=== PATIENT | female | born 1965 | race Caucasian/White ===

== ENCOUNTER 2022-05-01 17:22 | Emergency (ER) | payer OTHER ==
[~2022-05-01] VITALS: Ht 165.1 cm; Wt 99.8 kg
[2022-05-01 17:43] VITALS: BP_SYST 146
--- NOTE | 2022-05-01 18:05 | NUR ---
Pt brought by self, A&Ox4, pt presents to ER with R upper abdominal pain x 2 days, skin pink and warm, cap refill <3, VSS.
[2022-05-01 20:23] LABS: BASOPHILS # (AUTO) 0.1 K/uL (0.0-0.2); EOSINOPHILS # (AUTO) 0.2 K/uL (0.0-0.4); EOSINOPHILS % (AUTO) 3.1 % (0.0-4.0); HEMATOCRIT 37.4 % (36-48); LYMPHOCYTES # (AUTO) 2.1 K/uL (1.0-5.5); LYMPHOCYTES % (AUTO) 37.9 % (20.5-51.5); MEAN CORPUSCULAR VOLUME 87 fL (79.0-98.0); MONOCYTES # (AUTO) 0.5 K/uL (0.0-1.0); MONOCYTES % (AUTO) 8.4 % (1.7-9.3); NEUTROPHILS # (AUTO) 2.8 K/uL (1.8-7.7); NEUTROPHILS % (AUTO) 49.6 % (40.0-70.0); PLATELET COUNT (AUTO) 130 K/uL (130-430); RED BLOOD CELL COUNT(AUTO) 4.28 MIL/uL (4.2-6.2); RED CELL DISTRIBUTION WIDTH 14.1 % (9.0-15.0); WHITE BLOOD COUNT (AUTO) 5.6 K/uL (4.8-10.8)
--- NOTE | 2022-05-01 20:55 | NUR ---
Patient to ER bed to gown for evaluation. Side rails up. Report given to Alix VENTURA .
[2022-05-01 20:59] LABS: BILIRUBIN,URINE NEGATIVE (NEGATIVE); BLOOD, URINE NEGATIVE (NEGATIVE); CLARITY/URINE CLEAR (CLEAR); COLOR,URINE YELLOW (YELLOW); GLUCOSE,URINE TRACE (NEGATIVE); KETONES,URINE NEGATIVE (NEGATIVE); LEUKOCYTE ESTERASE ,URINE NEGATIVE (NEGATIVE); NITRITE, URINE NEGATIVE (NEGATIVE); PROTEIN URINE NEGATIVE (NEGATIVE)
--- NOTE | 2022-05-01 21:03 | NUR ---
WIL Friend at bedside.
--- NOTE | 2022-05-01 21:05 | NUR ---
Patient presents to ED with c/o back pain. Patient reports 7/10 pain in lower back. Patient A/Ox4, VSS, resp even and unlabored. Patient connected to monitor and lying in bed with side rails raised. Nad noted at this time.
[2022-05-01] MEDS ORDERED: KETOROLAC TROMETHAMINE 30 MG VIAL IM ONE (21:15)
[2022-05-01] MEDS ORDERED: MORPHINE 4 MG INJ. 4 MG/ML VIAL IM ONE (21:15)
[2022-05-01 21:34] LABS: ANION GAP 12 (5-15); CHLORIDE 101 mmol/L (98-107); CREATININE 0.79 mg/dL (0.55-1.30); GLUCOSE 218 mg/dL (70-99); POTASSIUM 3.7 mmol/L (3.5-5.1); UREA NITROGEN, BLOOD 13 mg/dL (8-21)
[2022-05-01 21:39] LABS: GFR AFRICAN AMERICAN 97 mL/min (>90)
[2022-05-01 21:43] LABS: ALANINE AMINOTRANSFERASE 28 U/L (12-78); ALBUMIN 2.9 g/dL (3.4-4.8); ASPARTATE AMINOTRANSFERASE 46 U/L (10-37); TOTAL BILIRUBIN 1.2 mg/dL (0.0-1.0)
--- NOTE | 2022-05-01 22:00 | NUR ---
Patient resting comfortably in bed with side rails raised. Nad noted at this time.
[2022-05-01] MEDS ORDERED: NAPR-1172 PO (22:56)
[2022-05-01 23:18] VITALS: BP_SYST 118
--- NOTE | 2022-05-01 23:18 | NUR ---
Patient given written and verbal discharge instructions and verbalizes understanding. ER MD discussed with patient the results and treatment provided. Patient in stable condition. ID arm band removed. Rx of Naproxen given. Patient educated on pain management and to follow up with PMD. Pain Scale 3/10. Opportunity for questions provided and answered. Medication side effect fact sheet provided. Patient A/Ox4, VSS, resp even and unlabored. Nad noted at this time. Patient in stable condition upon discharge.
== END 2022-05-01 23:18 | disposition home or self-care (01) ==
LOC: SED 17:22
DX: R10.11 Right upper quadrant pain (principal); J45.909 Unspecified asthma, uncomplicated; E11.9 Type 2 diabetes mellitus without complications; I10 Essential (primary) hypertension; Z79.899 Other long term (current) drug therapy
CPT/HCPCS: 99285; 74176; 71045; 80053; 85025; 84484; 36415; 93005; 76376; 96372; 81003; J1885; J2270

== ENCOUNTER 2023-01-28 21:27 | Emergency (ER) | payer OTHER ==
[~2023-01-28] VITALS: Ht 165.1 cm; Wt 113.4 kg
[~2023-01-28 21:27] MED LIST: NAPR-1172 PO
[2023-01-28 21:38] VITALS: BP_SYST 143
--- NOTE | 2023-01-28 21:38 | NUR ---
Pt with BS of 39. Pt ambulatory and A&O X4. Pt given 4 oz of juice PO. MD AND PRIMARY NURSE MADE AWARE, awaiting new orders.
--- NOTE | 2023-01-28 21:44 | NUR ---
Patient to ER bed 02 to gown for evaluation. Side rails up. Report given to AUDREY HINES.
[2023-01-28] MEDS ORDERED: DEXTROSE 50% JECT 50 ML DISP.SYRIN IVP ONE (21:45)
--- NOTE | 2023-01-28 21:53 | NUR ---
20G PLACED INLEFT AC, D5% 50ML GIVEN IV PUSH FOR A FSBS OF 39, ORANGE JUICE GIVEN WELL,PATIENT ADMITS TO DIETING WHILE TAKING HYPOGLYCEMIC MEDICATION WITHOUT TAKING BLOOD SUGAR TEST, NO DISTRESS NOTED, WILL REASSESS BLOOD SUGAR
--- NOTE | 2023-01-28 22:55 | NUR ---
Dr. KEMP at bedside examining the patient.
--- NOTE | 2023-01-28 23:25 | NUR ---
FSBS 156
--- NOTE | 2023-01-28 23:26 | NUR ---
CALL FROM [facility], CLINICALS GIVEN AT THIS TIME
[2023-01-28 23:29] LABS: ANION GAP 10 (5-15); CHLORIDE 99 mmol/L (98-107); CREATININE 0.86 mg/dL (0.55-1.30); GFR AFRICAN AMERICAN 88 mL/min (>90); GLUCOSE 157 mg/dL (70-99); UREA NITROGEN, BLOOD 19 mg/dL (8-21)
[2023-01-28 23:36] LABS: ALANINE AMINOTRANSFERASE 34 U/L (12-78); ALBUMIN 3.1 g/dL (3.4-4.8); ASPARTATE AMINOTRANSFERASE 47 U/L (10-37); TOTAL BILIRUBIN 0.9 mg/dL (0.0-1.0)
[2023-01-28 23:37] LABS: BASOPHILS % (AUTO) 0.7 % (0.0-2.0); EOSINOPHILS # (AUTO) 0.1 K/uL (0.0-0.4); EOSINOPHILS % (AUTO) 1.9 % (0.0-4.0); HEMOGLOBIN 13.5 g/dL (12.0-16.0); LYMPHOCYTES % (AUTO) 32.4 % (20.5-51.5); MEAN CORPUSCULAR HEMOGLOBIN 31 pg (27-31); MEAN CORPUSCULAR HGB CONC 34 % (32-36); MEAN CORPUSCULAR VOLUME 90 fL (79.0-98.0); MONOCYTES # (AUTO) 0.5 K/uL (0.0-1.0); NEUTROPHILS # (AUTO) 3.5 K/uL (1.8-7.7); PLATELET COUNT (AUTO) 129 K/uL (130-430); RED BLOOD CELL COUNT(AUTO) 4.42 MIL/uL (4.2-6.2); RED CELL DISTRIBUTION WIDTH 14.2 % (9.0-15.0); WHITE BLOOD COUNT (AUTO) 6.2 K/uL (4.8-10.8)
[2023-01-29] MEDS ORDERED: POTASSIUM CHLORIDE 20 MEQ TAB.PRT.SR PO ONE
[2023-01-29 01:51] VITALS: BP_SYST 123
--- NOTE | 2023-01-29 01:54 | NUR ---
BLOOD SUGAR NOTED AT 163 UPON DISCHARGE, Patient given written and verbal discharge instructions and verbalizes understanding. ER MD discussed with patient the results and treatment provided. Patient in stable condition. ID arm band removed. IV catheter removed intact and dressing applied, no active bleeding.Rx of given. Patient educated on pain management and to follow up with PMD. Pain Scale 0/10. Opportunity for questions provided and answered. Medication side effect fact sheet provided.
== END 2023-01-29 01:51 | disposition home or self-care (01) ==
LOC: SED 21:27
DX: E11.649 Type 2 diabetes mellitus with hypoglycemia without coma (principal); I10 Essential (primary) hypertension; R53.83 Other fatigue; R42 Dizziness and giddiness; Z88.6 Allergy status to analgesic agent; Z79.899 Other long term (current) drug therapy
CPT/HCPCS: 36415; 71045; 80053; 82962; 83880; 84484; 85025; 93005; 96374; 99285

== ENCOUNTER 2024-01-13 21:06 | Emergency (ER) | payer OTHER ==
[~2024-01-13] VITALS: Ht 165.1 cm; Wt 99.8 kg
[2024-01-13 21:21] VITALS: BP_SYST 130; PULSE 77; RESP 16; TEMP 97.5; O2SAT 96
[2024-01-13] MEDS: IPRATROPIUM BROM 0.5 MG/2.5 ML VIAL.NEB (ATROVENT) INH ONE (21:38)
[2024-01-13] MEDS: ALBUTEROL SULFATE 0.083% 2.5 MG/3 ML VIAL.NEB INH ONE (21:38)
[2024-01-13] MEDS: predniSONE 20 MG TABLET PO ONE (22:17)
[2024-01-13] MEDS ORDERED: LEVO750T64 PO ×2 (22:21→23:33)
[2024-01-13] MEDS ORDERED: ATRMDI INH ×2 (22:22→23:33)
[2024-01-13 23:37] VITALS: BP_SYST 112; PULSE 86; RESP 20; TEMP 97.4; O2SAT 92
== END 2024-01-13 22:30 | disposition home or self-care (01) ==
LOC: SED 21:06
DX: J20.9 Acute bronchitis, unspecified (principal); R05.9 Cough, unspecified; Z88.5 Allergy status to narcotic agent; J45.909 Unspecified asthma, uncomplicated; E11.9 Type 2 diabetes mellitus without complications; I10 Essential (primary) hypertension; Z79.899 Other long term (current) drug therapy; Z79.2 Long term (current) use of antibiotics
CPT/HCPCS: 99283; 71045; 94664; J7512